=== PATIENT | female | born 1985 | race Two or more races ===

== ENCOUNTER 2023-07-22 16:13 | Emergency (ER) | payer SELFPAY ==
[2023-07-22 16:27] VITALS: BP 136/95; PULSE 87; RESP 20; TEMP 98.7; BMI 35.4
[2023-07-22 18:33] LABS: URINE APPEARANCE CLEAR; URINE BILIRUBIN NEGATIVE (NEGATIVE); URINE COLOR YELLOW; URINE GLUCOSE (UA) NEGATIVE (NEGATIVE); URINE KETONE NEGATIVE (NEGATIVE); URINE LEUK ESTERASE NEGATIVE (NEGATIVE); URINE NITRITE NEGATIVE (NEGATIVE); URINE PROTEIN NEGATIVE (NEGATIVE); URINE UROBILINOGEN 0.2 mg/dL (0.2-1.0)
[2023-07-22 18:40] LABS: BASO % 1.9 % (0-2.0); EOS % 1.7 % (0-4.5); HEMATOCRIT 34.7 % (32.4-45.2); LYMPH % 34.7 % (8-40); MCH 20.3 pg (25.7-33.7); MCHC 31.7 g/dl (32.0-36.0); MEAN CELL VOLUME 64.2 fl (80-96); MEAN PLT VOLUME 8.4 fl (7.5-11.1); NEUT % 54.7 % (42.8-82.8); PLATELET COUNT 402 10^3/uL (134-434); RDW 19.3 % (11.6-15.6); WHITE BLOOD COUNT 7.7 K/mm3 (4.0-10.0)
[2023-07-22 18:43] LABS: CALCIUM 8.9 mg/dL (8.5-10.1)
[2023-07-22 18:44] LABS: ALBUMIN 3.6 g/dl (3.4-5.0); BLOOD UREA NITROGEN 12.4 mg/dL (7-18)
[2023-07-22 18:47] LABS: CREATININE 0.8 mg/dL (0.55-1.3)
[2023-07-22 18:48] LABS: BILIRUBIN,TOTAL 0.1 mg/dL (0.2-1)
[2023-07-22 18:49] LABS: TOT PROT 7.6 g/dl (6.4-8.2)
[2023-07-22] MEDS ORDERED: FAMOTIDINE 20 MG/50 ML IVPB 20 MG/50 ML MG IVPB ONE ×2 (20:19→20:23)
[2023-07-22] MEDS ORDERED: ACETAMINOPHEN 1000 MG/100 ML BAG IVPB ONE (20:21)
[2023-07-22] MEDS ORDERED: ACETAMINOPHEN INJECTION 100 ML IVPB ONE (20:23)
== END 2023-07-22 22:17 | disposition home or self-care (01) ==
LOC: JER 16:13
PROC: 3E033GC Introduction of Other Therapeutic Substance into Peripheral Vein, Percutaneous Approach (ICD-10-PCS; principal; 2023-07-22)
PROC: 3E033NZ Introduction of Analgesics, Hypnotics, Sedatives into Peripheral Vein, Percutaneous Approach (ICD-10-PCS; 2023-07-22)
DX: R10.12 Left upper quadrant pain (principal); K21.9 Gastro-esophageal reflux disease without esophagitis; R71.8 Other abnormality of red blood cells
CPT/HCPCS: 36415; 76705-TC; 80053; 81003; 82150; 83690; 84703; 85025; 87086; 99284-25

== ENCOUNTER 2023-08-05 16:15 | Emergency (ER) | payer SELFPAY ==
[2023-08-05 16:22] VITALS: BP 134/93; PULSE 85; RESP 20; TEMP 98.3; BMI 35.2
== END 2023-08-05 17:40 | disposition home or self-care (01) ==
LOC: JER 16:15
DX: R10.9 Unspecified abdominal pain (principal)
CPT/HCPCS: 99282-25